=== PATIENT | female | born 1935 | race Caucasian/White ===

== ENCOUNTER → 2016-11-13 | Outpatient (CLI) | payer MEDICARE, OTHER ==
[~2016-11-13] MED LIST: ASPI-587 PO; B12 IM; CALTRATE 600 +1 EACH PO; CHOL200035 PO; CLOP75TA PO; LVT.05T PO; NFAMINITAB PO; OMEG-12 PO; OXYC-199 PO; ROSU5TAB; SMV20T PO; THYROXINE PO
--- NOTE | 2016-11-14 19:11 | Diagnostic Imaging Report ---
EXAMINATION: Digital Mammogram bilateral screening. INDICATION: Screening. COMPARISON: This study was compared to the prior exam of 11/24/2011. At this time, there are no current complaints. The current study was also evaluated with a Computer Aided Detection (CAD) system. FINDINGS: The fibroglandular tissue in both breasts is heterogeneously dense. This does limit the sensitivity of this exam. Overall, there does not appear to have been any significant change when compared to the prior study. No primary or secondary sign of malignancy is noted. IMPRESSION: 1. There is no evidence of malignancy. 2. The patient should have her annual bilateral screening mammogram on schedule in November of 2017. ACR BI-RADS Category 1: Negative. Result letter will be mailed to the patient. Note: At least 10% of breast cancer is not imaged by mammography. Dictated by: Dictated on workstation # [id number]
== END ==
LOC: RAD 10:43
PROVIDERS: ATTEND Nurse Practitioner
DX: Z12.31 Encounter for screening mammogram for malignant neoplasm of breast (principal)
CPT/HCPCS: 77067

== ENCOUNTER 2017-04-05 16:46 | Observation (INO) | payer MEDICARE, OTHER ==
[~2017-04-05] VITALS: Ht 154.9 cm; Wt 56.0 kg
[~2017-04-05 16:46] MED LIST changes: -ROSU5TAB; +ROSU5TAB PO
--- OUTSIDE RECORDS SUMMARY | 2017-04-05 16:51 | XMS REPORT | Clinical Summary ---
Author Author [facility] Organization [facility] Address Unknown Phone Unavailable Care Team Providers Care Behavioral Health Care Manager Name Role Phone PCP Unavailable Source Comments Some departments are not documenting in the electronic medical record. If you do not see the information that you expected, contact Release of Information in the Health Information Management department at [phone] for further assistance in locating additional records.[facility] Allergies Active Allergy Reactions Severity Noted Date Comments Formaldehyde RASH Medium 12/07/2015 Quatemium-15 RASH, ITCHING Medium 12/02/2015 Current Medications Prescription Sig. Disp. Refills Start End Date Status Date aspirin EC 81 mg tablet Take 1 Tab by mouth 90 Tab 3 12/02/19 Active daily. 15 cyanocobalamin (VITAMIN 0.1 mL every 30 days. 3 Vial 3 01/26/20 Active B-12) 1,000 mcg/mL 15 injection levothyroxine (SYNTHROID) Take 1 Tab by mouth 90 Tab 0 09/01/19 Active 50 mcg tablet daily. pt needs to 16 schedule appointment rosuvastatin (CRESTOR) 20 Take 5 mg by mouth four Active mg tablet times weekly. vit Take by mouth twice Active C,E,Zn,Fj-nyobp1-cfb-zeax daily. (PRESERVISION AREDS 2 (OMEGA-3)) 250-2.5-0.5 mg cap cholecalciferol (VITAMIN Take 1,000 Units by mouth Active D-3) 1,000 units tablet twice daily. 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 Nodular episcleritis of left eye 04/05/2016 Last Assessment & Plan: Improved clinical appearance today, resolving Taper Pred acetate qd OS x 1 week, then D/C Report any changes in symptoms Diarrhea 02/24/2015 Statin intolerance 11/28/2014 Overview: Has tolerated atorvastatin started during this admission for severe CAD s/p 3 stents B12 deficiency 11/28/2014 CAD (coronary artery disease) 11/28/2014 Overview: - Normal stress test and ECHO 03/2014 -11/28/14: NSTEMI/LHC at [facility] to Prox to mid LCx, mid to distal LAD with 85-90% narrowing, Diagonal with 50-60% proximal stenosis, first OM 75%, LVEF 55-60%, localized area of akinesis in posterior basal wall, no MR NSTEMI (non-ST elevated myocardial infarction) ([facility]) 11/28/2014 PVD (posterior vitreous detachment), right eye 11/20/2014 Last Assessment & Plan: No pigment, heme, breaks, or tears seen on exam today. Signs and symptoms of retinal detachment reviewed with patient. Patient was instructed to present immediately for evaluation if increased flashes, increased floaters, decreased vision, curtain in field of vision, green colored tint in vision or veil. Hypothyroidism 03/24/2014 Vitamin D deficiency 03/24/2014 Dyslipidemia 03/24/2014 Family history of heart disease 03/24/2014 Fatigue 03/24/2014 Nonexudative age-related macular degeneration, bilateral, advanced atrophic 08/28/2013 without subfoveal involvement Last Assessment & Plan: Stable on clinical appearance today, OD worse than OS No heme or fluid noted today Pt currently on Preservision AREDS2 Recommend continued retinal care moving forward Dry eye 08/28/2013 Last Assessment & Plan: continue ATs Resolved Problems Problem Noted Date Resolved Date Status post cataract extraction and insertion of intraocular lens of left 10/18/2016 eye Overview: [facility] OS ZCBOO 02/23/16 L ast Assessment & Plan: 1. Cataract Extraction with PCIOL OS -Post-Op Week 6, doing well, very pleased -Using pred acetate 1x/day OS due to redness - Glasses prescription given at today's exam. Symptomatic bradycardia 11/28/2014 12/01/2014 S/P cataract extraction and insertion of intraocular lens 10/14/201410/18 Overview: 10/14/14 OD cataract extraction w/IOL zcboo Near target L ast Assessment & Plan: Now with PCO. Will plan YPC OD after CE OS Chest pain 03/24/2014 12/01/2014 Senile nuclear sclerosis 08/28/2013 02/24/2016 Last Assessment & Plan: Visually significant. Pt has PCIOL with near target OD and desires near target OS. Plan for ZCB00 18.5D for target -1.48 Immunizations Name Dates Previously Given Next Due Pneumococcal Vaccine 11/29/2014 (23-Sheeba Adult) Family History Medical History Relation Name Comments Coronary Artery Disease Father Diabetes Father Autoimmune Disease Maternal Grandmother Cancer Mother colon Thyroid Disease Mother Relation Name Status Comments Father Maternal Grandmother Mother Social History Tobacco Use Types Packs/Day Years Used Date Never Smoker Smokeless Tobacco: Never Used Sex Assigned at Date Recorded Not on file Last Filed Vital Signs Vital Sign Reading Time Taken Blood Pressure 132/78 08/21/2016 10:32 AM COMPUTATOR Pulse 67 08/21/2016 10:32 AM COMPUTATOR Temperature 36.6 C (97.8 F) 03/16/2015 1:09 PM CDT Respiratory Rate - - Oxygen Saturation 98% 03/30/2015 10:45 AM CDT Inhaled Oxygen - - Concentration Weight 53.8 kg (118 lb 8 oz) 10/18/2016 12:57 PM COMPUTATOR Height 154.9 cm (5' 1") 10/18/2016 12:57 PM COMPUTATOR Body Mass Index 22.39 10/18/2016 12:57 PM COMPUTATOR Plan of Treatment Health Maintenance Due Date Last Done Comments PHYSICAL (COMPREHENSIVE) 02[birth year]01/1943 EXAM PERTUSSIS VACCINE 02/01/1947 TETANUS VACCINE 02/01/1953 SHINGLES VACCINE 1996 OSTEOPOROSIS SCREENING 02/01/2001 PREVNAR/PNEUMOVAX (#2) 11/30/2015 11/29/2014 INFLUENZA VACCINE 04/13/2017 Results Not on filefrom Last 3 Months
--- OUTSIDE RECORDS SUMMARY | 2017-04-05 16:52 | XMS REPORT | Continuity of Care Document ---
Author Author [facility] Organization [facility] Address Unknown Phone Unavailable Allergies Active Description Code Type Severity Reaction Onset Reported/Identified Relationship to Patient Clinical Status Yes No Known Drug Allergies [id number] Drug Allergy Unknown N/ A 12/13/2011 Medications Problems Date Dx Coded Attending Type Code Diagnosis Diagnosed By 05/13/2013 HEIDI BONDS, ROBERTO Fitzpatrick Ot 562.10 05/13/2013 ROBERTO GORDON MD Ot 569.84 05/13/2013 ROBERTO GORDON MD Ot V16.0 05/13/2013 ROBERTO GORDON MD Ot V76.51 08/02/2014 SANAZ RASCON DO Ot 244.9 08/02/2014 SANAZ RASCON DO Ot 540.9 11/28/2014 BLAISE STEEL DO Ot 244.9 11/28/2014 BLAISE STEEL DO Ot 427.89 11/28/2014 BLAISE STEEL DO Ot 780.2 11/28/2014 BLAISE STEEL DO Ot 786.50 11/28/2014 BLAISE STEEL DO Ot V58.69 12/24/2014 NICK BONDS, SUNG Carvajal Ot 410.92 12/24/2014 NICK BONDS, SUNG Carvajal Ot V45.82 12/24/2014 NICK BONDS, SUNG A Ot V57.89 12/24/2014 NICK BONDS, SUNG Carvajal Ot 410.92 12/24/2014 NICK BONDS, SUNG Carvajal Ot V45.82 12/24/2014 NICK BONDS, SUNG Carvajal Ot V57.89 12/29/2014 NICK BONDS, SUNG Carvajal Ot 410.92 12/29/2014 NICK BONDS, SUNG A Ot V45.82 12/29/2014 NICK BONDS, SUNG Carvajal Ot V57.89 12/30/2014 Ot 786.50 12/30/2014 Ot V76.12 12/30/2014 ROBERTO GORDON MD Ot V72.84 02/10/2015 NICK BONDS, SUNG A Ot 410.92 02/10/2015 NICK BONDS, SUNG A Ot V45.82 02/10/2015 NICK BONDS, SUNG A Ot V57.89 03/11/2015 DAMIÁN DO, BLAISE Amari Ot 244.9 03/11/2015 DAMIÁN DO, BLAISE D Ot 308.3 03/11/2015 DAMIÁN DO, BLAISE D Ot 729.5 03/11/2015 DAMIÁN DO, BLAISE D Ot 786.59 03/11/2015 DAMIÁN DO, BLAISE D Ot V58.69 03/23/2015 NICK BONDS, SUNG A Ot 410.92 03/23/2015 NICK BONDS, SUNG A Ot V45.82 03/23/2015 NICK BONDS, SUNG A Ot V57.89 03/24/2015 NICK BONDS, SUNG A Ot 410.92 03/24/2015 NICK BONDS, SUNG A Ot V45.82 03/24/2015 NICK BONDS, SUNG A Ot V57.89 03/24/2015 NICK BONDS, SUNG A Ot 410.92 03/24/2015 NICK BONDS, SUNG A Ot V45.82 03/24/2015 NICK BONDS, SUNG A Ot V57.89 03/24/2015 NICK BONDS, SUNG A Ot 410.92 03/24/2015 NICK BONDS, SUNG A Ot V45.82 03/24/2015 NICK BONDS, SUNG A Ot V57.89 03/24/2015 NICK BONDS, SUNG A Ot 410.92 03/24/2015 NICK BONDS, SUNG A Ot V45.82 03/24/2015 NICK BONDS, SUNG A Ot V57.89 03/25/2015 NICK BONDS, SUNG A Ot 410.92 03/25/2015 NICK BONDS, SUNG A Ot V45.82 03/25/2015 NICK BONDS, SUNG A Ot V57.89 04/28/2015 NICK BONDS, SUNG A Ot 410.92 04/28/2015 NICK BONDS, SUNG A Ot V45.82 04/28/2015 NICK BONDS, SUNG A Ot V57.89 12/01/2015 SURJIT CAMPOS DO Ot F17.210 NICOTINE DEPENDENCE, CIGARETTES, UNCOMPL 12/01/2015 BETH , SURJIT K Ot I25.10 ATHSCL HEART DISEASE OF [place] CORONARY 12/01/2015 BETH DO, SURJIT K Ot R47.9 UNSPECIFIED SPEECH DISTURBANCES 12/01/2015 BETH DO, SURJIT K Ot Z98.61 CORONARY ANGIOPLASTY STATUS 12/02/2015 BETH , SURJIT K Ot F17.210 NICOTINE DEPENDENCE, CIGARETTES, UNCOMPL 12/02/2015 BETH DO, SURJIT K Ot I25.10 ATHSCL HEART DISEASE OF [place] CORONARY 12/02/2015 BETH DO, SURJIT K Ot R47.9 UNSPECIFIED SPEECH DISTURBANCES 12/02/2015 BETH DO, SURJIT K Ot Z98.61 CORONARY ANGIOPLASTY STATUS 11/13/2016 NIDA DOSHI APRN Ot Z12.31 ENCNTR SCREEN MAMMOGRAM FOR MALIGNANT NE 11/13/2016 NIDA DOSHI APRN Ot Z12.31 ENCNTR SCREEN MAMMOGRAM FOR MALIGNANT NE 11/13/2016 NIDA DOSHI HOME COORDINATOR Ot Z12.31 ENCNTR SCREEN MAMMOGRAM FOR MALIGNANT NE 11/13/2016 NIDA DOSHI APRN Ot Z12.31 ENCNTR SCREEN MAMMOGRAM FOR MALIGNANT NE 12/18/2016 NIDA DOSHI APRN Ot Z12.31 ENCNTR SCREEN MAMMOGRAM FOR MALIGNANT NE Procedures Results Encounters ACCT No. Visit Date/Time Discharge Status Pt. Type Provider Facility Loc./Unit Complaint [id number] 11/13/2016 10:43:00 2016 23:59:59 CLS Outpatient NIDA DOSHI APRN [facility] RAD SCREENING [id number] 12/01/2015 10:17:00 2015 12:13:00 DIS Emergency SURJIT CAMPOS DO [facility] ER [id number] 04/26/2015 12:32:00 2014 14:50:00 DIS Outpatient SUNG ROMERO MD [facility] CR [id number] 03/22/2015 12:03:00 2014 00:01:00 DIS Outpatient SUNG ROMERO MD [facility] CR [id number] 03/11/2015 18:54:00 2014 22:40:00 DIS Emergency BLAISE STEEL DO [facility] ER [id number] 11/28/2014 06:43:00 2014 10:58:00 DIS Emergency BLAISE STEEL DO [facility] ER [id number] 08/01/2014 12:31:00 2013 12:00:00 DIS Outpatient SNAAZ RASCON DO [facility] [id number] 05/13/2013 07:59:00 2012 11:40:00 DIS Outpatient ROBERTO GORDON MD [facility] [id number] 05/08/2013 07:21:00 2012 23:59:59 CLS Outpatient ROBERTO GORDON MD [facility] PREOP [id number] 12/30/2014 14:29:00 Document Registration [id number] 12/13/2011 06:16:00 Document Registration
[2017-04-05] MEDS ORDERED: RX-NITROGLYCERIN 0.4 MG TAB BTL 25'S SL ONE (17:08)
[2017-04-05] MEDS ORDERED: ASPIRIN 81 MG CHEW (CHILDREN'S ASA) PO ONE (17:15)
[2017-04-05] MEDS: RX-NITROGLYCERIN 0.4 MG TAB BTL 25'S SL PRN ×2 (17:27→18:58)
--- NOTE | 2017-04-05 17:31 | ED Cardiac General ---
History of Present Illness General Chief Complaint: Chest Pain Stated Complaint: CHEST PAIN Nursing Triage Note: Pt c/o chest heaviness that started yesterday. Pt also c/o L arm pain. Pt was at Dr. Escobar's office and was sent to ED by Dr. Escobar's staff. Source: patient, family Exam Limitations: no limitations History of Present Illness Time seen by provider: 17:15 Initial Comments This 82-year-old female presents with pressure type chest pain that began today. The patient has had associated shortness of breath. Patient's had similar episodes in past leading to stents by Dr. Hogan with [facility] cardiology at . Patient took aspirin prior to arrival. She has not had nitroglycerin. The patient's previous stents were in the left anterior descending artery. Allergies and Home Medications Allergies Coded Allergies: No Known Drug Allergies (Unverified , 12/13/11) Home Medications Aspirin 81 Mg Tablet., 81 MG PO, (Reported) Clopidogrel Bisulfate 75 Mg Tablet, 75 MG PO DAILY, (Reported) Levothyroxine Sodium 50 Mcg Tablet, 1 EACH PO DAILY, (Reported) Rosuvastatin Calcium 5 Mg Tablet, for 30 Days, (Reported) [b-12 injection] , IM monthly, (Reported) Review of Systems Constitutional: No chills, No fever, weakness EENTM: No Blurred Vision Respiratory: SOA With Exertion Cardiovascular: See HPI, Chest Pain, Denies Irregular Heart Rate, Denies Palpitations Gastrointestinal: Denies Nausea, Denies Poor Appetite, Denies Vomiting Genitourinary: Denies Burning, Denies Discharge Musculoskeletal: No back pain Skin: No change in color, No rash Endocrine: No Symptoms Reported Hematologic/Lymphatic: No Symptoms Reported Past [id number]-Xdbovk Hx Patient Social History Recent Foreign Travel: No Contact w/Someone Who Travel: No Recent Infectious Disease Expo: No Immunizations Up To Date Tetanus Booster (TDap): Unknown Seasonal Allergies Seasonal Allergies: No Surgeries Surgeries: Appendectomy, Cardiac, Coronary Stent Cardiovascular Cardiac Disorders: Coronary Artery Disease, Heart Attack, High Cholesterol Reproductive System Hx Reproductive Disorders: No IT PROGRAM ENGAGEMENT DIRECTOR History: Menopausal Endocrine Endocrine Disorders: Hypothyroidsim HEENT HEENT Disorders: Cataract Reviewed Nursing Assessment Reviewed/Agree w Nursing PMH: Yes Physical Exam Vital Signs Vital Sign - Last 12Hours 04/05/17 16:49 Temp 98.7 Pulse 73 Resp 18 B/P (MAP) 149/72 Pulse Ox 100 O2 Delivery Room Air Capillary Refill : Less Than 3 Seconds General Appearance: No Apparent Distress, WD/WN HEENT: Normal ENT Inspection Neck: Normal Inspection Respiratory: Lungs Clear Cardiovascular: Regular Rate, Rhythm, Normal Peripheral Pulses Gastrointestinal: Normal Bowel Sounds Extremity: Normal Capillary Refill, Normal Inspection, Normal Range of Motion Neurologic/Psychiatric: Alert, Oriented x3, No Motor/Sensory Deficits Skin: Normal Color, Warm/Dry Progress/Results/Core Measures Results/Orders Lab Results Laboratory Tests Test 04/05/17 17:20 Range/Units White Blood Count 7.2 4.3-11.0 10^3/uL Red Blood Count 4.33 L 4.35-5.85 10^6/uL Hemoglobin 13.4 11.5-16.0 G/DL Hematocrit 40 35-52 % Mean Corpuscular Volume 92 80-99 FL Mean Corpuscular Hemoglobin 31 25-34 PG Mean Corpuscular Hemoglobin Concent 34 32-36 G/DL Red Cell Distribution Width 12.9 10.0-14.5 % Platelet Count 179 130-400 10^3/uL Mean Platelet Volume 10.9 H 7.4-10.4 FL Neutrophils (%) (Auto) 49 42-75 % Lymphocytes (%) (Auto) 42 12-44 % Monocytes (%) (Auto) 6 0-12 % Eosinophils (%) (Auto) 3 0-10 % Basophils (%) (Auto) 1 0-10 % Neutrophils # (Auto) 3.5 1.8-7.8 X 10^3 Lymphocytes # (Auto) 3.0 1.0-4.0 X 10^3 Monocytes # (Auto) 0.4 0.0-1.0 X 10^3 Eosinophils # (Auto) 0.2 0.0-0.3 10^3/uL Basophils # (Auto) 0.1 0.0-0.1 10^3/uL Prothrombin Time 12.0 L 12.2-14.7 SEC INR Comment 0.9 0.8-1.4 Activated Partial Thromboplast Time 28 24-35 SEC Sodium Level 141 135-145 MMOL/L Potassium Level 4.1 3.6-5.0 MMOL/L Chloride Level 107 98-107 MMOL/L Carbon Dioxide Level 25 21-32 MMOL/L Anion Gap 9 5-14 MMOL/L Blood Urea Nitrogen 26 H 7-18 MG/DL Creatinine 0.95 0.60-1.30 MG/DL Estimat Glomerular Filtration Rate 56 BUN/Creatinine Ratio 27 Glucose Level 75 70-105 MG/DL Calcium Level 9.2 8.5-10.1 MG/DL Magnesium Level 2.1 1.8-2.4 MG/DL Total Bilirubin 0.6 0.1-1.0 MG/DL Aspartate Amino Transf (AST/SGOT) 21 5-34 U/L Alanine Aminotransferase (ALT/SGPT) 14 0-55 U/L Alkaline Phosphatase 71 40-136 U/L Myoglobin 71.5 10.0-92.0 NG/ML Troponin I < 0.30 <0.30 NG/ML B-Type Natriuretic Peptide 20.4 <100.0 PG/ML Total Protein 6.2 L 6.4-8.2 GM/DL Albumin 3.9 3.2-4.5 GM/DL Lipase 58 8-78 U/L My Orders Orders - ROBERTO FRENCH MD Ekg Tracing (04/05/17 16:54) O2 (04/05/17 17:12) Rx-Nitroglycerin Sl Tabs (Rx-Nitrostat S (04/05/17 17:15) Saline Lock/Iv-Start (04/05/17 17:12) Rx-Nitroglycerin Sl Tabs (Rx-Nitrostat S (04/05/17 17:08) Lidocaine 2% Viscous 15 Ml (Xylocaine Vi (04/05/17 17:45) Antacid Suspension (Mylanta Suspension (04/05/17 17:45) Lidocaine 2% Viscous 15 Ml (Xylocaine Vi (04/05/17 17:32) Antacid Suspension (Mylanta Suspension (04/05/17 17:32) Medications Given in ED Current Medications Medications Dose Ordered Sig/Zachary Route Start Time Stop Time Status Last Admin Dose Admin Al Hydrox/Mg Hydrox/Simethicone 30 ml ONCE ONCE PO 04/05/17 17:45 04/05/17 17:46 DC 04/05/17 17:40 30 ML Lidocaine HCl 5 ml ONCE ONCE PO 04/05/17 17:45 04/05/17 17:46 DC 04/05/17 17:40 5 ML Vital Signs/I&O Vital Sign - Last 12Hours 04/05/17 16:49 Temp 98.7 Pulse 73 Resp 18 B/P (MAP) 149/72 Pulse Ox 100 O2 Delivery Room Air Blood Pressure Mean: 97 Progress Note : Time: 18:44 Progress Note Patient's chest pain was relieved with a GI cocktail and nitroglycerin. First EKG and troponin were normal. Dr. Godfrey was kind enough to admit patient for further observation and evaluation. Dr. Barry was consulted. Departure Communication Time/Spoke to Admitting Phy: 18:[address] Godfrey. Time/Spoke to Consulting Physi: 18:45 Communication/Consulting . Impression Impression: Primary Impression: Chest pain Qualified Codes: R07.9 - Chest pain, unspecified Disposition: ADMITTED INPATIENT Condition: Improved Admissions Decision to Admit Reason: Admit from ER (General) Decision to Admit/Date: Apr 05, 2017 Time/Decision to Admit Time: 18:46 Departure-Patient Inst. Referrals: FALLON ESCOBAR MD (PCP/Family) Primary Care Physician ROBERTO FRENCH MD Apr 05, 2017 17:31
[2017-04-05] MEDS ORDERED: LIDOCAINE 2% VISCOUS 15 ML UDC ONE (17:32)
[2017-04-05] MEDS ORDERED: ANTACID SUSP 30 ML UDC (MYLANTA) ONE (17:32)
[2017-04-05 17:34] LABS: BASOPHILS # (AUTO) 0.1 10^3/uL (0.0-0.1); BASOPHILS % (AUTO) 1 % (0-10); EOSINOPHILS # (AUTO) 0.2 10^3/uL (0.0-0.3); EOSINOPHILS % (AUTO) 3 % (0-10); LYMPHOCYTES % (AUTO) 42 % (12-44); MEAN CORPUSCULAR HEMOGLOBIN 31 PG (25-34); MEAN CORPUSCULAR HGB CONC 34 G/DL (32-36); MEAN CORPUSCULAR VOLUME 92 FL (80-99); MEAN PLATELET VOLUME 10.9 FL (7.4-10.4); MONOCYTES # (AUTO) 0.4 X 10^3 (0.0-1.0); MONOCYTES % (AUTO) 6 % (0-12); NEUTROPHILS # (AUTO) 3.5 X 10^3 (1.8-7.8); NEUTROPHILS % (AUTO) 49 % (42-75); PLATELET COUNT 179 10^3/uL (130-400); RED BLOOD COUNT 4.33 10^6/uL (4.35-5.85); RED CELL DISTRIBUTION WIDTH 12.9 % (10.0-14.5); WHITE BLOOD COUNT 7.2 10^3/uL (4.3-11.0)
--- NOTE | 2017-04-05 17:34 | Diagnostic Imaging Report ---
INDICATION: Chest pain. COMPARISON: 12/01/2015. FINDINGS: Lungs are well aerated. There are no infiltrates. The heart is not enlarged. There is no pulmonary edema. No hilar adenopathy. No pneumothorax or pleural effusion. IMPRESSION: Normal portable chest. Dictated by: Dictated on workstation # [id number]
[2017-04-05 17:43] LABS: INR 0.9 (0.8-1.4)
[2017-04-05] MEDS ORDERED: ANTACID SUSP 30 ML UDC (MYLANTA) PO ONE (17:45)
[2017-04-05] MEDS ORDERED: LIDOCAINE 2% VISCOUS 15 ML UDC PO ONE (17:45)
[2017-04-05 17:54] LABS: ALANINE AMINOTRANSFERASE 14 U/L (0-55); ALBUMIN 3.9 GM/DL (3.2-4.5); ANION GAP 9 MMOL/L (5-14); ASPARTATE AMINO TRANSFERASE 21 U/L (5-34); BILIRUBIN,TOTAL 0.6 MG/DL (0.1-1.0); BLOOD UREA NITROGEN 26 MG/DL (7-18); BUN/CREATININE RATIO 27; CALCIUM 9.2 MG/DL (8.5-10.1); CARBON DIOXIDE 25 MMOL/L (21-32); CHLORIDE 107 MMOL/L (98-107); CREATININE SERUM 0.95 MG/DL (0.60-1.30); GFR ESTIMATED 56; GLUCOSE 75 MG/DL (70-105); LIPASE 58 U/L (8-78); MAGNESIUM 2.1 MG/DL (1.8-2.4); POTASSIUM 4.1 MMOL/L (3.6-5.0); SODIUM 141 MMOL/L (135-145); TOTAL PROTEIN 6.2 GM/DL (6.4-8.2)
[2017-04-05 18:00] LABS: MYOGLOBIN SERUM 71.5 NG/ML (10.0-92.0)
--- OUTSIDE RECORDS SUMMARY | 2017-04-05 19:01 | XMS REPORT | Clinical Summary ---
Author Author [facility] Organization [facility] Address Unknown Phone Unavailable Care Team Providers Care Garland Machine Operator Name Role Phone PCP Unavailable Source Comments Some departments are not documenting in the electronic medical record. If you do not see the information that you expected, contact Release of Information in the Health Information Management department at [phone] for further assistance in locating additional records.[facility] Allergies Active Allergy Reactions Severity Noted [...] weekly. vit Take by mouth twice Active C,E,Zn,Jh-kecga7-jcn-zeax daily. (PRESERVISION AREDS 2 (OMEGA-3)) 250-2.5-0.5 mg [...] test and ECHO 03/2014 -11/28/14: NSTEMI/LHC at [facility] to Prox to mid LCx, mid to distal LAD with 85-90% narrowing, Diagonal with 50-60% proximal stenosis, first OM 75%, LVEF 55-60%, localized area of akinesis in posterior basal wall, no MR NSTEMI (non-ST elevated myocardial infarction) ([facility]) 11/28/2014 PVD (posterior vitreous detachment), right eye [...] Taken Blood Pressure 132/78 08/21/2016 10:32 AM MANAGER OF CLINICAL Pulse 67 08/21/2016 10:32 AM MANAGER OF CLINICAL Temperature 36.6 C (97.8 F) 03/16/2015 1:09 PM CDT Respiratory Rate - - Oxygen Saturation 98% 03/30/2015 10:45 AM CDT Inhaled Oxygen - - Concentration Weight 53.8 kg (118 lb 8 oz) 10/18/2016 12:57 PM MANAGER OF CLINICAL Height 154.9 cm (5' 1") 10/18/2016 12:57 PM MANAGER OF CLINICAL Body Mass Index 22.39 10/18/2016 12:57 PM MANAGER OF CLINICAL Plan of Treatment Health Maintenance Due Date Last Done Comments PHYSICAL (COMPREHENSIVE) 02[birth year]01/1943 EXAM PERTUSSIS VACCINE 02/01/1947 TETANUS VACCINE 02/01/1953 SHINGLES VACCINE 1996 OSTEOPOROSIS SCREENING 02/01/2001 PREVNAR/PNEUMOVAX (#2) 11/30/2015 11/29/2014 INFLUENZA VACCINE 04/13/2017 Results Not on filefrom Last 3 Months
--- OUTSIDE RECORDS SUMMARY | 2017-04-05 19:03 | XMS REPORT | Continuity of Care Document ---
Author Author [facility] Organization [facility] Address Unknown Phone Unavailable Allergies Active Description Code Type Severity Reaction Onset Reported/Identified Relationship to Patient Clinical Status Yes No Known Drug Allergies [id number] Drug Allergy Unknown N/ A 12/13/2011 Medications [...] K Ot I25.10 ATHSCL HEART DISEASE OF [place] CORONARY 12/01/2015 BETH DO, SURJIT K Ot R47.9 UNSPECIFIED SPEECH DISTURBANCES 12/01/2015 BETH DO, SURJIT K Ot Z98.61 CORONARY ANGIOPLASTY STATUS 12/02/2015 BETH , SURJIT K Ot F17.210 NICOTINE DEPENDENCE, CIGARETTES, UNCOMPL 12/02/2015 BETH DO, SURJIT K Ot I25.10 ATHSCL HEART DISEASE OF [place] CORONARY 12/02/2015 BETH DO, SURJIT K Ot R47.9 UNSPECIFIED SPEECH DISTURBANCES 12/02/2015 BETH DO, SURJIT K Ot Z98.61 CORONARY ANGIOPLASTY STATUS 11/13/2016 NIDA DOSHI APRN Ot Z12.31 ENCNTR SCREEN MAMMOGRAM FOR MALIGNANT NE 11/13/2016 NIDA DOSHI APRN Ot Z12.31 ENCNTR SCREEN MAMMOGRAM FOR MALIGNANT NE 11/13/2016 NIDA DOSHI SENIOR TALENT MANAGEMENT CONSULTANT Ot Z12.31 ENCNTR SCREEN MAMMOGRAM FOR MALIGNANT NE 11/13/2016 NIDA DOSHI APRN Ot Z12.31 ENCNTR SCREEN MAMMOGRAM FOR MALIGNANT NE 12/18/2016 NIDA DOSHI APRN Ot Z12.31 ENCNTR SCREEN MAMMOGRAM FOR MALIGNANT NE Procedures Results Encounters ACCT No. Visit Date/Time Discharge Status Pt. Type Provider Facility Loc./Unit Complaint [id number] 11/13/2016 10:43:00 2016 23:59:59 CLS Outpatient NIDA ODSHI APRN [facility] RAD SCREENING [id number] 12/01/2015 10:17:00 2015 12:13:00 DIS Emergency SURJIT CAMPOS DO [facility] ER [id number] 04/26/2015 12:32:00 2014 14:50:00 DIS Outpatient SUNG ROMERO MD [facility] CR [id number] 03/22/2015 12:03:00 2014 00:01:00 DIS Outpatient SUNG ROMERO MD [facility] CR [id number] 03/11/2015 18:54:00 2014 22:40:00 DIS Emergency BLASIE STEEL DO [facility] ER [id number] 11/28/2014 06:43:00 2014 10:58:00 DIS Emergency BLAISE STEEL DO [facility] ER [id number] 08/01/2014 12:31:00 2013 12:00:00 DIS Outpatient SANAZ RASCON DO [facility] [id number] 05/13/2013 07:59:00 2012 11:40:00 DIS Outpatient ROBERTO GORDON MD [facility] [id number] 05/08/2013 07:21:00 2012 23:59:59 CLS Outpatient ROBERTO GORDON MD [facility] PREOP [id number] 12/30/2014 14:29:00 Document Registration [id number] 12/13/2011 06:16:00 Document Registration
[2017-04-05 19:50] VITALS: BP 147/84
[2017-04-05] MEDS ORDERED: NITROGLYCERIN SUBLINGUAL 0.4 MG TAB (NITROSTAT) SL PRN (20:15)
[2017-04-05] MEDS ORDERED: CATHETER FLUSH 10 ML SYR IV PRN (20:15)
[2017-04-05] MEDS ORDERED: morphine INJ 4 MG/ML 1 ML (VIAL/SYRINGE) IV PRN (20:15)
[2017-04-05] MEDS ORDERED: diphenhydrAMINE 25 MG TAB (BENADRYL) PO PRN (20:15)
[2017-04-05] MEDS: CATHETER FLUSH 10 ML SYR IV SCH (23:03)
[2017-04-06 00:41] VITALS: BP 119/56
[2017-04-06 04:00] VITALS: BP 90/54
[2017-04-06 05:59] LABS: CHOLESTEROL 195 MG/DL (< 200); DIRECT LDL 115 MG/DL (1-129); TRIGLYCERIDES 109 MG/DL (<150); VLDL CHOLESTEROL 22 MG/DL (5-40)
[2017-04-06] MEDS: CATHETER FLUSH 10 ML SYR IV SCH (06:23)
[2017-04-06 08:00] VITALS: BP 118/71
--- NOTE | 2017-04-06 08:46 | Consultation-Cardiology ---
HPI-Cardiology Cardiology Consultation Date of Consultation 04/06/17 Date of Admission Time Seen by Provider: 08:42 Indication: chest pain HPI 82 years old lady with history of coronary artery disease, hyperlipidemia. Was in her usual state of health until the last week when she started having increasing fullness in her abdomen, increasing shortness of breath, yesterday had an episode of chest pain described it as dull achiness in the retrosternal area radiating to the back and left shoulder. Came into the emergency room and received nitroglycerin initially felt slightly worse then got better. Since then she has been doing better. No further episodes of chest pain. No palpitation, no syncope or near syncopal episode, denied any pedal edema or claudications. Home Medications & Allergies Allergies: Coded Allergies: No Known Drug Allergies (Unverified , 12/13/11) Home Medication List Reviewed: Yes APE-Balplq-Kpmibv Hx Patient Social History Employed/Student: retired Alcohol Use: Denies Use Recreational Drug Use: No Smoking Status: Never a Smoker Recent Foreign Travel: No Recent Infectious Disease Expo: No Recent Hopitalizations: No Physical Abuse Screen: No Sexual Abuse: No Immunizations Up To Date Tetanus Booster (TDap): Unknown Date of Pneumonia Vaccine: Sep 13, 2016 Past Medical History past medical history as discussed below Family Medical History Family History: 19 FATHER Cardiovascular disease Diabetes mellitus Myocardial infarction 19 MOTHER Colon cancer Neoplasm Osteoporosis Thyroid disease G8 BROTHER Alzheimer's disease Deafness or hearing loss Hypercholesterolemia G8 BROTHER Deafness or hearing loss Diabetes mellitus Hypercholesterolemia Hypertension Constitutional: no symptoms reported, see HPI EENTM: see HPI, no symptoms reported Respiratory: see HPI, No cough, dyspnea on exertion, No hemoptysis, No orthopnea, No phlegm, No short of breath, No stridor, No wheezing, No other Cardiovascular: see HPI, chest pain, No edema, No Hx of Intervention, No palpitations, No syncope, No vascular heart diseas, No other Gastrointestinal: no symptoms reported, see HPI Genitourinary: no symptoms reported, see HPI Musculoskeletal: no symptoms reported, see HPI Skin: no symptoms reported, see HPI Psychiatric/Neurological: No Symptoms Reported, See HPI Reviewed Test Results Reviewed Test Results Lab Laboratory Tests Test 04/05/17 17:20 04/05/17 23:11 04/06/17 05:23 Range/Units White Blood Count 7.2 4.3-11.0 10^3/uL Red Blood Count 4.33 L 4.35-5.85 10^6/uL Hemoglobin 13.4 11.5-16.0 G/DL Hematocrit 40 35-52 % Mean Corpuscular Volume 92 80-99 FL Mean Corpuscular Hemoglobin 31 25-34 PG Mean Corpuscular Hemoglobin Concent 34 32-36 G/DL Red Cell Distribution Width 12.9 10.0-14.5 % Platelet Count 179 130-400 10^3/uL Mean Platelet Volume 10.9 H 7.4-10.4 FL Neutrophils (%) (Auto) 49 42-75 % Lymphocytes (%) (Auto) 42 12-44 % Monocytes (%) (Auto) 6 0-12 % Eosinophils (%) (Auto) 3 0-10 % Basophils (%) (Auto) 1 0-10 % Neutrophils # (Auto) 3.5 1.8-7.8 X 10^3 Lymphocytes # (Auto) 3.0 1.0-4.0 X 10^3 Monocytes # (Auto) 0.4 0.0-1.0 X 10^3 Eosinophils # (Auto) 0.2 0.0-0.3 10^3/uL Basophils # (Auto) 0.1 0.0-0.1 10^3/uL Prothrombin Time 12.0 L 12.2-14.7 SEC INR Comment 0.9 0.8-1.4 Activated Partial Thromboplast Time 28 24-35 SEC Sodium Level 141 135-145 MMOL/L Potassium Level 4.1 3.6-5.0 MMOL/L Chloride Level 107 98-107 MMOL/L Carbon Dioxide Level 25 21-32 MMOL/L Anion Gap 9 5-14 MMOL/L Blood Urea Nitrogen 26 H 7-18 MG/DL Creatinine 0.95 0.60-1.30 MG/DL Estimat Glomerular Filtration Rate 56 BUN/Creatinine Ratio 27 Glucose Level 75 70-105 MG/DL Calcium Level 9.2 8.5-10.1 MG/DL Magnesium Level 2.1 1.8-2.4 MG/DL Total Bilirubin 0.6 0.1-1.0 MG/DL Aspartate Amino Transf (AST/SGOT) 21 5-34 U/L Alanine Aminotransferase (ALT/SGPT) 14 0-55 U/L Alkaline Phosphatase 71 40-136 U/L Myoglobin 71.5 10.0-92.0 NG/ML Troponin I < 0.30 < 0.30 < 0.30 <0.30 NG/ML B-Type Natriuretic Peptide 20.4 <100.0 PG/ML Total Protein 6.2 L 6.4-8.2 GM/DL Albumin 3.9 3.2-4.5 GM/DL Lipase 58 8-78 U/L Triglycerides Level 109 <150 MG/DL Cholesterol Level 195 < 200 MG/DL LDL Cholesterol Direct 115 1-129 MG/DL VLDL Cholesterol 22 5-40 MG/DL HDL Cholesterol 58 40-60 MG/DL Physical Exam Vital Signs Vital Sign - Last 12Hours 04/05/17 16:49 Temp 98.7 Pulse 73 Resp 18 B/P (MAP) 149/72 Pulse Ox 100 O2 Delivery Room Air Capillary Refill : Less Than 3 Seconds General Appearance: No Apparent Distress, WD/WN Eyes: Bilateral Eye Normal Inspection, Bilateral Eye PERRL, Bilateral Eye EOMI HEENT: PERRL/EOMI, TMs Normal, Normal ENT Inspection, Pharynx Normal Neck: Full Range of Motion, Normal Inspection, Non Tender, Supple, Carotid Bruit Respiratory: Chest Non Tender, Lungs Clear, Normal Breath Sounds, No Accessory Muscle Use, No Respiratory Distress Cardiovascular: Regular Rate, Rhythm, No Edema, No Gallop, No JVD, No Murmur, Normal Peripheral Pulses Gastrointestinal: Normal Bowel Sounds, No Organomegaly, No Pulsatile Mass, Non Tender, Soft Back: Normal Inspection, No CVA Tenderness, No Vertebral Tenderness Extremity: Normal Capillary Refill, Normal Inspection, Normal Range of Motion, Non Tender, No Calf Tenderness, No Pedal Edema Neurologic/Psychiatric: Alert, Oriented x3, No Motor/Sensory Deficits, Normal Mood/Affect Skin: Normal Color, Warm/Dry Lymphatic: No Adenopathy A/P-Cardiology Admission Diagnosis chest pain nonspecific etiology Coronary artery disease Hyperlipidemia Hypothyroidism Assessment/Plan Chest pain nonspecific etiology, resembling angina, cardiac enzymes and EKG did not show any acute abnormality, planning to evaluate stress test and echocardiogram. Coronary artery disease, history of 2 stents to the circumflex artery using Xience Alpine 2.523 and 2.2515, 2 stents to the LAD using 2.533 and 3.023, occluded RCA done about 3 years ago, reporting having stress test done last seen here and was normal. Planning to evaluate stress test today. Hyperlipidemia, continue to monitor lipids. Hypothyroidism, followed and managed by primary care physician Clinical Quality Measures AMI/AHF: ASA po Prior to arrival: Yes (5 (81mg) asa) DVT/VTE Risk/Contraindication: Risk Factor Score Per Nursin RFS Level Per Nursing on Admit: 2=Moderate KESHA DOMÍNGUEZ MD Apr 06, 2017 8:46 am
[2017-04-06] MEDS ORDERED: meTOprolol TARTRATE 25 MG (LOPRESSOR) TABLET PO SCH (09:00)
[2017-04-06] MEDS ORDERED: ASPIRIN E.C. 325 MG (ECOTRIN) TABLET PO SCH (09:00)
[2017-04-06] MEDS ORDERED: ASPIRIN 81 MG CHEW (CHILDREN'S ASA) PO SCH (09:00)
[2017-04-06] MEDS ORDERED: CLOPIDOGREL 75 MG (PLAVIX) TABLET PO SCH (09:00)
[2017-04-06] MEDS ORDERED: LEVOTHYROXINE 50 MCG (LEVOTHROID) TAB PO SCH (09:00)
[2017-04-06] MEDS ORDERED: ROSUVASTATIN 5 MG (CRESTOR) TABLET PO SCH (09:00)
[2017-04-06] MEDS ORDERED: VIT1CAPS44 PO (09:36)
[2017-04-06] MEDS ORDERED: CHOL20003 PO (09:36)
[2017-04-06] MEDS ORDERED: CNC1KV IJ (09:36)
--- NOTE | 2017-04-06 11:30 | Clinic Account Progress/Dx ---
Clinic Account Progress/Dx DIAGNOSIS: Date Seen by Provider: Apr 06, 2017 Time Seen by Provider: 11:30 Diagnosis chest pain nonspecific etiology Coronary artery disease Hyperlipidemia Hypothyroidism KESHA DOMÍNGUEZ MD Apr 06, 2017 11:30 am
--- NOTE | 2017-04-06 11:36 | Short Stay Summary-Hospitalist ---
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 Pt states she sees him every 6 months. Pt also confirms [facility] as managing cardiology. Pt states she had a heart attack over three years ago. Pt confirms seeing Dr. Maribel Hogan there once a year. Pt denies smoking or ETOH use Pt states she has always been a house . Pt states she has four kids. Pt denies wearing O2 at home. Pt confirms living with Pt confirms meeting Dr. Barry and will have stress test today Physical exam stable. Lungs sound perfect. Scribed by Daxa Blackburn under the direct supervision of Dr. Lewis. Source: patient Exam Limitations: no limitations Date Seen 04/06/17 Time Seen by Provider: 09:30 Attending Physician Geeta Lewis DO PCP Charly Taylor MD Referring Physician Date of Admission Apr 05, 2017 at 18:40 Home Medications & Allergies Home Medications Reviewed patient Home Medication Reconciliation Form Allergies Allergies Coded Allergies No Known Drug Allergies (Unverified12/13/11) Past Qsakhfv-[id number]-Rlvtbp Hx Patient Social History Marrital Status: Employed/Student: retired Alcohol Use: Denies Use Recreational Drug Use: No Smoking Status: Never a Smoker Physical Abuse Screen: No Sexual Abuse: No Recent Foreign Travel: No Contact w/other who traveled: No Recent Hopitalizations: No Recent Infectious Disease Expo: No Immunizations Up To Date Tetanus Booster (TDap): Unknown Date of Pneumonia Vaccine: Sep 13, 2016 Seasonal Allergies Seasonal Allergies: No Surgeries Yes (STENTS X 4, CATARACT SURGERY ) Appendectomy, Cardiac, Coronary Stent Respiratory No Cardiovascular Yes (4 STENTS, AMI NOVEMBER 2014) Coronary Artery Disease, Heart Attack, High Cholesterol Neurological No Reproductive System Hx Reproductive Disorders: No Sexually Transmitted Disease: No HIV/AIDS: No [employer]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 Genitourinary No Gastrointestinal No Musculoskeletal No Endocrine History of Endocrine Disorders: Yes Endocrine Disorders: Hypothyroidsim HEENT HEENT Disorders: Cataract, Macular Degeneration Cancer No Psychosocial History of Psychiatric Problem: No Integumentary History of Skin or Integumenta: No Blood Transfusions History of Blood Disorders: No Adverse Reaction to a Blood Tr: No Reviewed Nursing Assessment Reviewed/Agree w Nursing PMH: Yes Family Medical History Family Hx: Alzheimer's disease G8 BROTHER Cardiovascular disease 19 FATHER Colon cancer 19 MOTHER Deafness or hearing loss G8 BROTHER G8 BROTHER Diabetes mellitus 19 FATHER G8 BROTHER Hypercholesterolemia G8 BROTHER G8 BROTHER Hypertension G8 BROTHER Myocardial infarction 19 FATHER Neoplasm 19 MOTHER Osteoporosis 19 MOTHER Thyroid disease 19 MOTHER Review of Systems Constitutional: see HPI EENTM: no symptoms reported Respiratory: no symptoms reported Cardiovascular: chest pain Gastrointestinal: no symptoms reported Genitourinary: no symptoms reported Musculoskeletal: no symptoms reported Skin: no symptoms reported Psychiatric/Neurological: No Symptoms Reported All Other Systems Reviewed Negative Unless Noted: Yes Physical Exam Physical Exam Vital Signs Vital Sign - Last 12Hours 04/05/17 16:49 Temp 98.7 Pulse 73 Resp 18 B/P (MAP) 149/72 Pulse Ox 100 O2 Delivery Room Air Capillary Refill : Less Than 3 Seconds General Appearance: No Apparent Distress, WD/WN, Chronically ill, Thin Eyes: Bilateral Eye Normal Inspection, Bilateral Eye PERRL HEENT: PERRL/EOMI, Normal ENT Inspection, Pharynx Normal Neck: Full Range of Motion, Normal Inspection, Non Tender, Supple, Carotid Bruit Respiratory: Chest Non Tender, Lungs Clear, Normal Breath Sounds, No Accessory Muscle Use, No Respiratory Distress Cardiovascular: Regular Rate, Rhythm, No Edema, No Gallop, No JVD, No Murmur, Normal Peripheral Pulses Gastrointestinal: Normal Bowel Sounds, No Organomegaly, No Pulsatile Mass, Non Tender, Soft Back: Normal Inspection, No CVA Tenderness, No Vertebral Tenderness Extremity: Normal Capillary Refill, Normal Inspection, Normal Range of Motion, Non Tender, No Calf Tenderness, No Pedal Edema Neurologic/Psychiatric: Alert, Oriented x3, No Motor/Sensory Deficits, Normal Mood/Affect Skin: Normal Color, Warm/Dry Lymphatic: No Adenopathy Results Results/Procedures Lab Laboratory Tests 04/05/17 17:20 Short Stay Diagnosis Discharge Diagnosis-Short Stay Admission Diagnosis Chest pain in known CAD patient previous stents placed in 2012 after [place] Hypothyroidism Hyperlipidemia Final Discharge Diagnosis Chest pain in known CAD patient previous stents placed in 2012 after [place] Hypothyroidism Hyperlipidemia Conclusion Plan Plan: Stress test was negative for ischemia so she was DC Clinical Quality Measures AMI/AHF: ASA po Prior to arrival: Yes (5 (81mg) asa) DVT/VTE Risk/Contraindication: Risk Factor Score Per Nursin RFS Level Per Nursing on Admit: 2=Moderate GEETA LEWIS DO Apr 06, 2017 11:36
[2017-04-06 11:50] VITALS: BP 90/54
--- NOTE | 2017-04-09 09:20 | STRESS TEST ---
DATE OF SERVICE: 04/06/2017 EXERCISE STRESS ECHOCARDIOGRAM REPORT INDICATION: Chest pain. FINDINGS: Baseline heart rate is 71. Baseline blood pressure 139/77. Baseline EKG is sinus rhythm with no ischemic changes. SUMMARY: The patient started exercising with a baseline heart rate, blood pressure and EKG mentioned above. She was able to exercise for 6 minutes on standard Camilo protocol, achieving maximum heart rate of 148, which is over 100% of maximum expected heart rate. With peak exercise level, EKG was showing nondiagnostic changes with [address] depression in lead 3 and AVF [address] depression in lead 2, [address] depression in V4 and V5. Blood pressure was 195/77. During recovery, heart rate and blood pressure returned to baseline. EKG returned to baseline. Echocardiographic images were acquired and reviewed in the parasternal long axis, parasternal short axis, apical four chamber and apical two chamber views. Review of the images showed normal left ventricular size with normal contractility with no ischemic changes. CONCLUSION: 1. Fair good exercise tolerance a total of 6 minutes on standard Camilo protocol, total of 7.3 METS achieving over 100% of maximum expected heart rate. 2. Hypertensive response to exercise, returned to baseline during recovery. 3. Nondiagnostic EKG changes with exercise, returned to baseline during recovery. 4. Normal echocardiographic images at rest and with peak stress images with no ischemic changes. 5. The patient is known to have occluded right coronary artery and stents in the LAD and circumflex artery. Job ID: [id number] DocumentID: [id number] Dictated Date: 04/06/2017 12:25:11 Crm Coordinator Date: 04/06/2017 12:40:49 Dictated By: KESHA DOMÍNGUEZ MD
== END 2017-04-06 10:58 | disposition home or self-care (01) ==
LOC: EDUNIT# 16:46 → ER 16:47 → UNDOADMOB 18:40 → ICU 18:40 → UNDODISOB 04-06 11:50
PROVIDERS: ADMIT Internal Medicine; ATTEND Internal Medicine
DX: R07.9 Chest pain, unspecified (principal); E78.5 Hyperlipidemia, unspecified; E03.9 Hypothyroidism, unspecified; I25.10 Atherosclerotic heart disease of native coronary artery without angina pectoris; I25.2 Old myocardial infarction; Z95.5 Presence of coronary angioplasty implant and graft
CPT/HCPCS: 36415; 71010; 80053; 80061; 83690; 83735; 83874; 83880; 84484; 85025; 85610; 85730; 93005; 93041; 93306; 93351; 99211

== ENCOUNTER → 2017-11-14 | Outpatient (CLI) | payer MEDICARE, OTHER ==
[~2017-11-14] MED LIST changes: +CHOL20003 PO; +CNC1KV IJ; +VIT1CAPS44 PO
--- NOTE | 2017-11-16 08:25 | Diagnostic Imaging Report ---
Digital mammogram bilateral screening This study was compared to the prior exams of 11/13/2016 and 11/24/2011. At this time, there are no current complaints. The current study was also evaluated with a Computer Aided Detection (CAD) system. FINDINGS: The fibroglandular tissue in both breasts is heterogeneously dense. This does limit the sensitivity of this exam. Overall, there does not appear to have been any significant change when compared to the prior study. No primary or secondary sign of malignancy is noted. IMPRESSION: There is no radiographic evidence for malignancy. ACR BI-RADS Category 1: Negative. Result letter will be mailed to the patient. Note: At least 10% of breast cancer is not imaged by mammography. Dictated on workstation # [id number]
== END ==
LOC: RAD 08:35
PROVIDERS: ATTEND Nurse Practitioner
DX: Z12.31 Encounter for screening mammogram for malignant neoplasm of breast (principal)
CPT/HCPCS: 77067

== ENCOUNTER 2018-07-01 10:16 | Outpatient (RCR) | payer MEDICARE, OTHER | END 2018-09-29 | disposition home or self-care (01) | LOC: LAB 10:16 | PROVIDERS: ATTEND Internal Medicine | DX: R19.7 Diarrhea, unspecified (principal) | CPT/HCPCS: 87324; 87449 ==

== ENCOUNTER 2019-08-30 22:46 | Emergency (ER) | payer MEDICARE, OTHER ==
[~2019-08-30] VITALS: Ht 154.9 cm; Wt 54.0 kg
[2019-08-30] MEDS ORDERED: KETOROLAC 30 MG/ML VIAL IVP STA (22:59)
[2019-08-30] MEDS ORDERED: ASPIRIN 81 MG CHEW (CHILDREN'S ASA) PO ONE (23:00)
[2019-08-30 23:13] LABS: BASOPHILS % (AUTO) 0 % (0-10); EOSINOPHILS # (AUTO) 0.2 10^3/uL (0.0-0.3); EOSINOPHILS % (AUTO) 3 % (0-10); HEMATOCRIT 42 % (35-52); HEMOGLOBIN 14.2 G/DL (11.5-16.0); LYMPHOCYTES # (AUTO) 3.3 X 10^3 (1.0-4.0); LYMPHOCYTES % (AUTO) 35 % (12-44); MEAN CORPUSCULAR HEMOGLOBIN 31 PG (25-34); MEAN CORPUSCULAR HGB CONC 34 G/DL (32-36); MEAN CORPUSCULAR VOLUME 91 FL (80-99); MEAN PLATELET VOLUME 10.4 FL (7.4-10.4); MONOCYTES # (AUTO) 0.7 X 10^3 (0.0-1.0); MONOCYTES % (AUTO) 7 % (0-12); NEUTROPHILS # (AUTO) 5.2 X 10^3 (1.8-7.8); NEUTROPHILS % (AUTO) 55 % (42-75); PLATELET COUNT 175 10^3/uL (130-400); RED CELL DISTRIBUTION WIDTH 12.9 % (10.0-14.5); WHITE BLOOD COUNT 9.4 10^3/uL (4.3-11.0)
[2019-08-30 23:19] LABS: FIBRIN DEGRADATION PRODUCTS 0.44 UG/ML (0.00-0.49); INR 0.9 (0.8-1.4); PROTHROMBIN TIME PATIENT 12.4 SEC (12.2-14.7)
[2019-08-30 23:26] LABS: ALANINE AMINOTRANSFERASE 15 U/L (0-55); ALBUMIN 4.2 GM/DL (3.2-4.5); ALKALINE PHOSPHATASE 78 U/L (40-136); BILIRUBIN,TOTAL 0.3 MG/DL (0.1-1.0); BUN/CREATININE RATIO 23; CALCIUM 9.3 MG/DL (8.5-10.1); CARBON DIOXIDE 22 MMOL/L (21-32); CHLORIDE 105 MMOL/L (98-107); CREATININE SERUM 1.17 MG/DL (0.60-1.30); GFR ESTIMATED 44; GLUCOSE 116 MG/DL (70-105); MAGNESIUM 2.1 MG/DL (1.6-2.4); POTASSIUM 4.2 MMOL/L (3.6-5.0); SODIUM 141 MMOL/L (135-145); TOTAL PROTEIN 6.8 GM/DL (6.4-8.2)
[2019-08-30] MEDS ORDERED: fentaNYL INJECTION 100 MCG/2 ML AMP IVP STA (23:46)
[2019-08-30] MEDS ORDERED: ORPHENADRINE 60 MG/2 ML (NORFLEX) AMP IV STA (23:46)
--- NOTE | 2019-08-30 23:54 | ED Chest Pain ---
General Chief Complaint: Chest Pain Stated Complaint: BACK & LEFT ARM PAIN Nursing Triage Note: AMBULATORY TO ED ROOM 6 WITH C/O STIFF NECK, CP, LEFT ARM PAIN THAT STARTED 2 DAYS AGO.TOOK (2) 325MG ASA TODAY AND TYLENOL FOR PAIN. Nursing Sepsis Screen: No Definite Risk Source: patient Exam Limitations: no limitations History of Present Illness Date Seen by Provider: Aug 30, 2019 Time Seen by Provider: 22:50 Initial Comments Here with complaint of sided neck, chest and arm pain that started 2 days ago and worsened this evening. She did take 2 aspirin full dose after taking Tylenol earlier and that has not helped. States that it hurt when she turned her head for the first couple days and now it's just a constant ache that goes from the left shoulder down the left arm and into the chest. Does have history of NE 4 years ago with stents. She is not currently on blood thinners but does take aspirin daily. Denies nausea, vomiting, breathing problems or sweating. had an illness with neck pain a few weeks ago that resolved and she thought that may be what it was. Unsure of what caused the onset of pain. Timing/Duration: 1-2 days Severity/Quality: moderate, aching Location: shoulder (left) Radiation: arms, neck, shoulders, back Activities at Onset: none Prior CP/Workup: cardiac cath, heart attack Modifying Factors: worse with movement; improves with rest ASA po [employer]ENT: Yes NTG SL [employer]ATING [employer]PERINTENDENT: No Associated Symptoms: No abdominal pain; back pain; No diaphoresis, No edema, No fever/chills, No nausea/vomiting, No shortness of breath, No weakness Allergies and Home Medications Allergies Coded Allergies: No Known Drug Allergies (Unverified , 12/13/11) Home Medications Aspirin 81 Mg Tablet.dr, 81 MG PO HS, (Reported) Cholecalciferol (Vitamin D3) 2,000 Unit Capsule, 3,000 UNIT PO DAILY, (Reported) Cyanocobalamin 1,000 Mcg/Ml Inj, 1,000 MCG IJ MONTHLY, (Reported) Levothyroxine Sodium 50 Mcg Tablet, 50 MCG PO DAILY, (Reported) Rosuvastatin Calcium 5 Mg Tablet, 20 MG PO DAILY, (Reported) TAKES 1/2 (5MG) TABLET EVERY OTHER NIGHT AT BEDTIME Vit C/E/Zn/Coppr/Lutein/Zeaxan 1 Each Capsule, 1 CAP PO BID, (Reported) Patient Home Medication List Home Medication List Reviewed: Yes Review of Systems Review of Systems Constitutional: see HPI; No chills, No fever EENTM: No Symptoms Reported Respiratory: No Symptoms Reported Cardiovascular: See HPI Gastrointestinal: No Symptoms Reported Genitourinary: No Symptoms Reported Musculoskeletal: see HPI All Other Systems Reviewed Negative Unless Noted: Yes Past Teyafdl-Zebual-Qvhesg Hx Past Med/Social Hx: Reviewed Nursing Past Med/Soc Hx Patient Social History Alcohol Use: Denies Use Recreational Drug Use: No Smoking Status: Never a Smoker Recent Foreign Travel: No Contact w/Someone Who Travel: No Recent Infectious Disease Expo: No Recent Hopitalizations: No Physical Abuse: No Sexual Abuse: No Mistreated: No Fear: No Immunizations Up To Date Tetanus Booster (TDap): Unknown Date of Pneumonia Vaccine: Sep 13, 2016 Date of Influenza Vaccine: May 19, 2019 Seasonal Allergies Seasonal Allergies: No Past Medical History Surgeries: Yes (STENTS X 4, CATARACT SURGERY ) Appendectomy, Cardiac, Coronary Stent Respiratory: No Cardiac: Yes (4 STENTS, AMI NOVEMBER 2014) Coronary Artery Disease, Heart Attack, High Cholesterol Neurological: No Reproductive Disorders: No VP INTEGRITY History: Menopausal Sexually Transmitted Disease: No HIV/AIDS: No Genitourinary: No Gastrointestinal: No Musculoskeletal: No Endocrine: Yes Hypothyroidsim Cataract, Macular Degeneration Cancer: No Psychosocial: No Integumentary: No Blood Disorders: No Adverse Reaction/Blood Tranf: No Family Medical History Reviewed Nursing Family Hx Alzheimer's disease G8 BROTHER Cardiovascular disease 19 FATHER Colon cancer 19 MOTHER Deafness or hearing loss G8 BROTHER G8 BROTHER Diabetes mellitus 19 FATHER G8 BROTHER Hypercholesterolemia G8 BROTHER G8 BROTHER Hypertension G8 BROTHER Myocardial infarction 19 FATHER Neoplasm 19 MOTHER Osteoporosis 19 MOTHER Thyroid disease 19 MOTHER Physical Exam Vital Signs Vital Signs - First Documented 08/30/19 22:49 Temp 36.2 Pulse 65 Resp 18 B/P (MAP) 141/90 (107) O2 Delivery Room Air Capillary Refill : Less Than 3 Seconds Height, Weight, BMI Height: 5'1.00" Weight: 123lbs. 6.0oz. 55.591261ak; 22.00 BMI Method:Stated General Appearance: WD/WN, Mild Distress HEENT: PERRL/EOMI, Pharynx Normal Neck: Supple, Other (pain to the lateral aspect posterior base of neck. No obvious injury noted.) Respiratory: Lungs Clear, Normal Breath Sounds Cardiovascular: Regular Rate, Rhythm, No Murmur Gastrointestinal: Non Tender, Soft Extremity: Normal Range of Motion, Non Tender Neurologic/Psychiatric: Alert, Oriented x3 Skin: Normal Color, Warm/Dry Progress/Results/Core Measures Results/Orders Lab Results Laboratory Tests Test 08/30/19 22:58 08/31/19 00:52 Range/Units White Blood Count 9.4 4.3-11.0 10^3/uL Red Blood Count 4.59 4.35-5.85 10^6/uL Hemoglobin 14.2 11.5-16.0 G/DL Hematocrit 42 35-52 % Mean Corpuscular Volume 91 80-99 FL Mean Corpuscular Hemoglobin 31 25-34 PG Mean Corpuscular Hemoglobin Concent 34 32-36 G/DL Red Cell Distribution Width 12.9 10.0-14.5 % Platelet Count 175 130-400 10^3/uL Mean Platelet Volume 10.4 7.4-10.4 FL Neutrophils (%) (Auto) 55 42-75 % Lymphocytes (%) (Auto) 35 12-44 % Monocytes (%) (Auto) 7 0-12 % Eosinophils (%) (Auto) 3 0-10 % Basophils (%) (Auto) 0 0-10 % Neutrophils # (Auto) 5.2 1.8-7.8 X 10^3 Lymphocytes # (Auto) 3.3 1.0-4.0 X 10^3 Monocytes # (Auto) 0.7 0.0-1.0 X 10^3 Eosinophils # (Auto) 0.2 0.0-0.3 10^3/uL Basophils # (Auto) 0.0 0.0-0.1 10^3/uL Prothrombin Time 12.4 12.2-14.7 SEC INR Comment 0.9 0.8-1.4 Activated Partial Thromboplast Time 28 24-35 SEC D-Dimer 0.44 0.00-0.49 UG/ML Sodium Level 141 135-145 MMOL/L Potassium Level 4.2 3.6-5.0 MMOL/L Chloride Level 105 98-107 MMOL/L Carbon Dioxide Level 22 21-32 MMOL/L Anion Gap 14 5-14 MMOL/L Blood Urea Nitrogen 27 H 7-18 MG/DL Creatinine 1.17 0.60-1.30 MG/DL Estimat Glomerular Filtration Rate 44 BUN/Creatinine Ratio 23 Glucose Level 116 H 70-105 MG/DL Calcium Level 9.3 8.5-10.1 MG/DL Corrected Calcium 9.1 8.5-10.1 MG/DL Magnesium Level 2.1 1.6-2.4 MG/DL Total Bilirubin 0.3 0.1-1.0 MG/DL Aspartate Amino Transf (AST/SGOT) 23 5-34 U/L Alanine Aminotransferase (ALT/SGPT) 15 0-55 U/L Alkaline Phosphatase 78 40-136 U/L Myoglobin 69.6 10.0-92.0 NG/ML Troponin I < 0.028 < 0.028 <0.028 NG/ML B-Type Natriuretic Peptide 28.2 <100.0 PG/ML Total Protein 6.8 6.4-8.2 GM/DL Albumin 4.2 3.2-4.5 GM/DL Micro Results Microbiology 08/30/19 Influenza Types A,B Antigen (MARK) - Final, Complete My Orders Orders - JATINDER WILSON MD Cbc With Automated Diff (08/30/19 22:53) Magnesium (08/30/19 22:53) Chest 1 View, Ap/Pa Only (08/30/19 22:53) Ekg Tracing (08/30/19 22:53) Comprehensive Metabolic Panel (08/30/19 22:53) Myoglobin Serum (08/30/19 22:53) Protime With Inr (08/30/19 22:53) Partial Thromboplastin Time (08/30/19 22:53) O2 (08/30/19 22:53) Monitor-Rhythm Ecg Trace Only (08/30/19 22:53) Ed Iv/Invasive Line Start (08/30/19 22:53) BNP (08/30/19 22:53) Influenza A And B Antigens (08/30/19 22:59) Ketorolac Injection (Toradol Injection) (08/30/19 22:59) Fibrin Degradation Products (08/30/19 22:53) Troponin I (08/30/19 22:53) Fentanyl Injection (Sublimaze Injection (08/30/19 23:46) Orphenadrine Injection (Norflex Injectio (08/30/19 23:46) Troponin I (08/31/19 00:30) Fentanyl Injection (Sublimaze Injection (08/31/19 01:19) Tramadol Tablet (Ultram Tablet) (08/31/19 01:19) Vital Signs/I&O 08/30/19 22:49 Temp 36.2 Pulse 65 Resp 18 B/P (MAP) 141/90 (107) O2 Delivery Room Air Blood Pressure Mean: 107 Progress Progress Note : Progress Note Seen and evaluated. IV, labs, EKG and chest x-ray ordered. ASA held as she started taking that. Toradol 15 mg IV ordered. This does appear to be more musculoskeletal but we will continue cardiac workup. Monitor patient. 2345: Pain continues. Fentanyl 25 g IV and Norflex 60 mg IV ordered. Workup to this point is negative. 0120: Repeat troponin pending. Pain is better but still noticeable. She states it's 5 out of 10. Seems to involve mostly the shoulder and neck and back. Fentanyl 25 g IV and tramadol 50 mg by mouth ordered. Monitor patient. 0218: Overall better. Repeat troponin negative. She feels comfortable going home and family agrees. Discharged home with return precautions. Patient and family verbalize understanding instructions and agreement with plan. Initial ECG Impression Date: Aug 30, 2019 Initial ECG Impression Time: 22:50 Initial ECG Rate: 61 Initial ECG Rhythm: Normal Sinus Initial ECG Impression: Normal Initial ECG Comparisson: Unchanged (04/05/17) Comment Sinus rhythm with normal axis. No evidence of ST elevation NE. Interpreted by me. Diagnostic Imaging Diagonstic Imaging: Xray Plain Films/CT/US/NM/MRI: chest Comments No acute findings Reviewed: Reviewed by Me Departure Impression Primary Impression: Neck muscle strain Qualified Codes: S16.1XXA - Strain of muscle, fascia and tendon at neck level, initial encounter Additional Impression: Shoulder pain Qualified Codes: M25.512 - Pain in left shoulder Disposition: 01 HOME, SELF-CARE Condition: Stable Departure-Patient Inst. Decision time for Depature: 02:19 Referrals: FALLON ESCOBAR MD (PCP/Family) Primary Care Physician Patient Instructions: Chest Pain (DC), Cervical Muscle Strain (DC), Generalized Neck Pain (DC) Add. Discharge Instructions: All discharge instructions reviewed with patient and/or family. Voiced understanding. You may continue Tylenol/acetaminophen 650 mg every 6 hours as needed for pain. You may take other medication as prescribed. Follow-up with your Dr. in 2-3 days for recheck and further evaluation. Return for worse pain, weakness, breathing problems, sweating, fever or other concerns as needed. Scripts Tramadol HCl (Tramadol HCl) 50 Mg Tablet 50 MG PO Q6H PRN for PAIN for 3 Days, #12 TAB 0 Refills Prov: JATINDER WILSON MD 08/31/19 JATINDER WILSON MD Aug 30, 2019 23:53
[2019-08-31] MEDS ORDERED: fentaNYL INJECTION 100 MCG/2 ML AMP IVP STA (01:19)
[2019-08-31] MEDS ORDERED: TRM50T PO (02:21)
[2019-08-31 02:26] VITALS: BP 137/64
--- NOTE | 2019-08-31 07:27 | Diagnostic Imaging Report ---
Indication: Chest pain. Comparison: 04/05/2017. Discussion: Single portable upright view of the chest was obtained. Stable normal heart size. No focal consolidation, pleural fluid, or pneumothorax. No osseous abnormality. Impression: 1. Negative portable chest. Dictated by: Dictated on workstation # [id number]
== END 2019-08-31 02:30 | disposition home or self-care (01) ==
LOC: EDUNIT# 22:46 → ER 22:48
DX: S16.1XXA Strain of muscle, fascia and tendon at neck level, initial encounter (principal); M25.512 Pain in left shoulder; I25.2 Old myocardial infarction; E78.00 Pure hypercholesterolemia, unspecified; I25.10 Atherosclerotic heart disease of native coronary artery without angina pectoris; E03.9 Hypothyroidism, unspecified; Z95.5 Presence of coronary angioplasty implant and graft; Z79.82 Long term (current) use of aspirin; Z90.49 Acquired absence of other specified parts of digestive tract; Z82.49 Family history of ischemic heart disease and other diseases of the circulatory system; Z80.0 Family history of malignant neoplasm of digestive organs; X58.XXXA Exposure to other specified factors, initial encounter
CPT/HCPCS: 36415; 71045; 80053; 83735; 83874; 83880; 84484; 85025; 85379; 85610; 85730; 87804; 93005; 93041; 96374; 96375; 96376

== ENCOUNTER → 2019-10-08 | Outpatient (CLI) | payer MEDICARE, OTHER ==
[~2019-10-08] MED LIST changes: +TRM50T PO
--- NOTE | 2019-10-08 11:55 | Diagnostic Imaging Report ---
PROCEDURE: US Thyroid. TECHNIQUE: Multiple real-time grayscale images were obtained of the thyroid in various projections. INDICATION: Thyroid nodule noted on outside study. COMPARISON: No prior ultrasounds are available for comparison. FINDINGS: Right lobe of thyroid measures 3.5 x 1.5 x 0.9 cm and the left lobe measures 2.9 x 1.0 x 1.0 cm. Isthmus is 2 mm in thickness. There is a hypoechoic nodule in the right lobe measuring 5 mm x 4 mm in size. This may represent a colloid cyst. No other thyroid masses are detected. IMPRESSION: Probable 5 mm colloid cyst in right lobe of thyroid. The study is otherwise unremarkable. Dictated by: Dictated on workstation # [id number]
== END ==
LOC: RAD 10:56
PROVIDERS: ATTEND Internal Medicine
DX: E04.1 Nontoxic single thyroid nodule (principal)
CPT/HCPCS: 76536

== ENCOUNTER → 2019-12-22 | Outpatient (CLI) | payer MEDICARE, OTHER ==
--- NOTE | 2019-12-22 12:42 | Diagnostic Imaging Report ---
PROCEDURE: US Thyroid. TECHNIQUE: Multiple real-time grayscale images were obtained of the thyroid in various projections. INDICATION: Thyroid nodules, followup. Correlation is made with prior thyroid ultrasound from 10/08/2019. The right lobe of the thyroid measures 4.1 x 0.8 x 0.8 cm, the left lobe measures 3.3 x 1.1 x 0.7 cm. Isthmus is 2 mm in thickness. Circumscribed hypoechoic nodule lower pole right lobe of the thyroid measures 4 mm x 3 mm. This is stable when compared with prior exam. No new mass is detected. Left lobe is unremarkable. IMPRESSION: Stable subcentimeter right lobe thyroid nodule. Followup in 6-12 months could be performed to confirm stability. Dictated by: Dictated on workstation # [id number]
== END ==
LOC: RAD 11:22
PROVIDERS: ATTEND Internal Medicine
DX: E04.1 Nontoxic single thyroid nodule (principal)
CPT/HCPCS: 76536

== ENCOUNTER 2020-10-26 09:30 | Outpatient (CLI) | payer MEDICARE, OTHER ==
[~2020-10-26] VITALS: Ht 154.9 cm; Wt 55.3 kg
[2020-10-26] MEDS ORDERED: CHOL3000 PO ×2 (10:12)
[2020-10-26] MEDS ORDERED: ROSU20TA32 PO ×2 (10:12)
[2020-10-26] MEDS ORDERED: LEVO50TA6 PO ×2 (10:12)
[2020-10-27] MEDS ORDERED: ASPI-999 PO ×2 (10:50)
== END 2020-10-26 10:16 | disposition home or self-care (01) ==
LOC: PREOP 09:30
PROVIDERS: ATTEND Surgery
DX: Z01.818 Encounter for other preprocedural examination (principal)

== ENCOUNTER 2020-10-27 09:55 | Day surgery (SDC) | payer MEDICARE, OTHER ==
[2020-10-27] VITALS (10 sets, daily range): BP systolic 124–163; BP diastolic 58–87
[~2020-10-27] VITALS: Ht 154 cm; Wt 55.3 kg
[~2020-10-27 09:55] MED LIST changes: +CHOL3000 PO; +LEVO50TA6 PO; +ROSU20TA32 PO
[2020-10-27] MEDS ORDERED: ceFAZolin INJECTION 1,000 MG in WATER (STERILE) FOR INJECTION 10 ML IV ONE (10:15)
[2020-10-27] MEDS ORDERED: MIDAZOLAM 2 MG/2 ML (VERSED) VIAL ONE (10:25)
[2020-10-27] MEDS ORDERED: ONDANSETRON 4 MG/2 ML (SDV) Z0FRAN ONE (10:25)
[2020-10-27] MEDS ORDERED: proPOfol 200 MG/20 ML (DIPRIVAN) VIAL IV ONE (10:25)
[2020-10-27] MEDS ORDERED: LIDOCAINE PF 2% 5 ML (XYLOCAINE) VIAL ONE (10:25)
[2020-10-27] MEDS ORDERED: fentaNYL INJ 100 MCG/2 ML AMP ONE (10:25)
[2020-10-27] MEDS ORDERED: SEVOFLURANE (ULTANE) 15 ML INHAL SOLN ONE ×5 (10:26→13:41)
--- NOTE | 2020-10-27 10:28 | Progress Note-Pre Operative ---
Pre-Operative Progress Note H&P Reviewed The H&P was reviewed, patient examined and no changes noted. Date Seen by Provider: Oct 27, 2020 Time Seen by Provider: 10: Date H&P Reviewed: Oct 27, 2020 Time H&P Reviewed: :28 Pre-Operative Diagnosis: temporal arteritis JOSE PHILLIPS DO Oct 27, 2020 10:28
[2020-10-27] MEDS ORDERED: ASPI-999 PO ×2 (10:50)
[2020-10-27] MEDS ORDERED: LACTATED RINGERS 1,000 ML IV PRN (11:00)
[2020-10-27] MEDS ORDERED: MUPIROCIN 2% OINT 22 GM (BACTROBAN) TUBE ONE (11:12)
--- NOTE | 2020-10-27 22:23 | OPERATIVE REPORT ---
DATE OF SERVICE: 10/27/2020 PREOPERATIVE DIAGNOSIS: Temporal arteritis. POSTOPERATIVE DIAGNOSIS: Temporal arteritis. PROCEDURE: Left temporal artery biopsy. SURGEON: Jose Bunch DO ANESTHESIA: General. ESTIMATED BLOOD LOSS: Minimal. COMPLICATIONS: None. INDICATIONS: The patient is an 85-year-old female with suspected temporal arteritis. It has been requested that a temporal artery biopsy be performed. She understands risks and benefits of procedure and wished to proceed with procedure. Consent was signed in the chart. DESCRIPTION OF PROCEDURE: The patient was taken to the operating suite. She was prepped and draped in sterile fashion. Timeout was performed. Incision was made anterior to the left ear using Doppler over the location of the left temporal artery. Dissection was taken down through the subcutaneous tissues and further dissection was made until the left temporal artery was located. The artery was tied off and a segment of the artery was removed. The wound was then irrigated with copious amounts of irrigation. Local anesthetic was infiltrated around the incision and the incision was then closed using 5-0 Prolene in simple interrupted fashion. The area was then washed and dried and a sterile bandage was applied. The patient tolerated procedure well without any complications. She was taken to recovery room in stable condition. RECOMMENDATIONS: The patient will follow up in the office in 7 to 10 days for removal. Job ID: [id number] DocumentID: [id number] Dictated Date: 10/27/2020 15:46:59 Partner Cco Date: 10/27/2020 22:23:02 Dictated By: JOSE BUNCH DO
== END 2020-10-27 15:30 | disposition home or self-care (01) ==
LOC: SDC 09:55
PROVIDERS: ATTEND Surgery
DX: M31.6 Other giant cell arteritis (principal); I10 Essential (primary) hypertension; Z79.02 Long term (current) use of antithrombotics/antiplatelets; Z95.5 Presence of coronary angioplasty implant and graft; Z83.3 Family history of diabetes mellitus; Z80.9 Family history of malignant neoplasm, unspecified
CPT/HCPCS: 87081; 88305

== ENCOUNTER → 2021-01-19 | Outpatient (CLI) | payer MEDICARE, OTHER ==
[~2021-01-19] MED LIST changes: +ASPI-999 PO
--- NOTE | 2021-01-19 12:53 | Diagnostic Imaging Report ---
PROCEDURE: US Thyroid. TECHNIQUE: Multiple Real-time grayscale images were obtained of the thyroid in various projections. INDICATION: Thyroid nodule. FINDINGS: The previous thyroid ultrasound exam performed on 12/22/2019 noted a stable 4 x 3 mm nodule in the lower pole of the right lobe of the thyroid. On this exam, that finding is again evident and does not appear to have changed. Consequently, I do suspect this is a benign process. There is no other discrete solid or cystic mass within either lobe. The thyroid gland itself is not enlarged with the right lobe measuring 4.1 x 1.0 x 0.9 cm and the left lobe estimated to be 3.1 x 0.8 x 1.1 cm (normal gland size 4-5 x 2 x 2 cm or less). IMPRESSION: 1. The small hypoechoic nodule in the inferior pole of the right lobe seen previously is again evident and appears stable. Most likely, this is a benign process. If further imaging is desired, then a followup exam in 1 year would be recommended. 2. The thyroid gland is not enlarged. Dictated by: Dictated on workstation # [id number]
--- NOTE | 2021-01-20 11:01 | Diagnostic Imaging Report ---
Digital mammogram INDICATION: Bilateral screening This study was compared to the prior exams of 11/14/2017 and 11/13/2016. At this time there are no current complaints. The current study was also evaluated with a Computer Aided Detection (CAD) system. FINDINGS: The fibroglandular tissue in both breasts is heterogeneously dense. This does limit the sensitivity of this exam. Overall, there does not appear to have been any significant change when compared to the prior study. No primary or secondary sign of malignancy is noted. IMPRESSION: There is no radiographic evidence for malignancy. ACR BI-RADS Category 1: Negative. Result letter will be mailed to the patient. Note: At least 10% of breast cancer is not imaged by mammography. Dictated by: Dictated on workstation # [id number]
== END ==
LOC: RAD 11:00
PROVIDERS: ATTEND Nurse Practitioner Family
DX: Z12.31 Encounter for screening mammogram for malignant neoplasm of breast (principal); E04.1 Nontoxic single thyroid nodule
CPT/HCPCS: 76536; 77063; 77067

== ENCOUNTER → 2021-03-24 | Outpatient (CLI) | payer MEDICARE, OTHER ==
--- NOTE | 2021-03-24 10:45 | Diagnostic Imaging Report ---
PROCEDURE: CT urinary tract, rule out kidney stone. TECHNIQUE: Multiple contiguous axial images were obtained through the abdomen and pelvis without the use of intravenous contrast. Auto Exposure Controls were utilized during the CT exam to meet ALARA standards for radiation dose reduction. INDICATION: Lower abdominal pain. COMPARISON: Comparison is made with prior CT from 08/01/2014. FINDINGS: The lung bases are clear of acute infiltrates. There is a 5 mm nodule in the right lower lobe, stable. Liver and gallbladder are unremarkable. There is no biliary ductal dilatation. Pancreas and spleen are unremarkable. No adrenal mass is detected. No renal calculi are identified. No definite ureteral or bladder calculi are identified. There is no hydronephrosis. Aorta is calcified but nonaneurysmal. The small and large bowel loops are normal in caliber. There is diverticulosis of the sigmoid and descending colon but no evidence of acute diverticulitis. There is no free fluid or fluid collection. There is a right adnexal cyst measuring 3.2 cm in size. Uterus is unremarkable. Bony structures are nonacute. IMPRESSION: 1. No evidence of urinary tract calculi or obstruction. 2. Uncomplicated diverticulosis. 3. Right adnexal cyst. Dictated by: Dictated on workstation # [id number]
== END ==
LOC: RAD 09:41
PROVIDERS: ATTEND Physician Assistant
DX: N83.291 Other ovarian cyst, right side (principal); K57.30 Diverticulosis of large intestine without perforation or abscess without bleeding
CPT/HCPCS: 74176

== ENCOUNTER → 2022-08-16 | Outpatient (CLI) | payer MEDICARE, OTHER ==
--- NOTE | 2022-08-16 11:09 | Diagnostic Imaging Report ---
PROCEDURE: US Thyroid. TECHNIQUE: Multiple real-time grayscale images were obtained of the thyroid in various projections. INDICATION: Thyroid nodule, follow-up. Correlation is made with prior thyroid ultrasound 01/19/2021. Right lobe of thyroid measures 3.4 x 0.9 x 0.8 cm and the left lobe measures 2.9 x 0.7 x 1.1 cm. Isthmus is 2 mm in thickness. Small mixed echogenicity nodule in the right lobe appears be fairly stable at 5 mm x 4.4 mm x 3 mm. No new thyroid masses detected. IMPRESSION: Stable subcentimeter benign-appearing nodule right lobe of the thyroid. Dictated by: Dictated on workstation # [id number]
--- NOTE | 2022-08-16 20:04 | Diagnostic Imaging Report ---
INDICATION: Routine screening. COMPARISON: Prior mammograms of 01/19/2021 and 11/14/2017. EXAMINATION: 2D and 3D bilateral screening mammography was performed with CAD. The current study was also evaluated with a Computer Aided Detection (CAD) system. FINDINGS: Scattered fibroglandular densities are identified, bilaterally. The parenchymal pattern is stable. No mass or malignant-appearing microcalcifications are seen. There are benign calcifications seen. Axillae are unremarkable. IMPRESSION: No mammographic features suspicious for malignancy are identified. ACR BI-RADS Category 2: Benign findings. Result letter will be mailed to the patient. Note: At least 10% of breast cancer is not imaged by mammography. Dictated by: Dictated on workstation # [id number]
== END ==
LOC: RAD 09:45
PROVIDERS: ATTEND Physician Assistant
DX: E04.1 Nontoxic single thyroid nodule (principal)
CPT/HCPCS: 76536; 77063; 77067